=== PATIENT | male | born 1945 | race Caucasian/White ===

== ENCOUNTER 2021-09-18 06:48 | Day surgery (SDC) | payer MEDICARE ==
[2021-09-17 11:27] VITALS: BMI 21.9
[2021-09-18] MEDS ORDERED: Lidocaine 1% MPF 2 ML VIAL ONE (07:52)
[2021-09-18] MEDS ORDERED: Phenylephrine 10 MG/ML VIAL ONE (09:07)
[2021-09-18] MEDS ORDERED: Fentanyl 100 MCG/2 ML VIAL ONE (09:07)
[2021-09-18] MEDS ORDERED: PROPOFOL 200 MG/20 ML VIAL ONE (09:39)
[2021-09-18] MEDS ORDERED: Lidocaine 1% PF 5 ML VIAL ONE (09:39)
== END 2021-09-18 12:44 | disposition home or self-care (01) ==
LOC: SDC 06:48
PROVIDERS: ATTEND Internal Medicine
PROC: 0DB98ZX Excision of Duodenum, Via Natural or Artificial Opening Endoscopic, Diagnostic (ICD-10-PCS; principal; 2021-09-18)
PROC: 0DB78ZX Excision of Stomach, Pylorus, Via Natural or Artificial Opening Endoscopic, Diagnostic (ICD-10-PCS; 2021-09-18)
PROC: 0DB38ZX Excision of Lower Esophagus, Via Natural or Artificial Opening Endoscopic, Diagnostic (ICD-10-PCS; 2021-09-18)
PROC: 0D758ZZ Dilation of Esophagus, Via Natural or Artificial Opening Endoscopic (ICD-10-PCS; 2021-09-18)
PROC: 0DBK8ZX Excision of Ascending Colon, Via Natural or Artificial Opening Endoscopic, Diagnostic (ICD-10-PCS; 2021-09-18)
PROC: 0DBN8ZX Excision of Sigmoid Colon, Via Natural or Artificial Opening Endoscopic, Diagnostic (ICD-10-PCS; 2021-09-18)
DX: D50.9 Iron deficiency anemia, unspecified (principal); R13.10 Dysphagia, unspecified; K57.30 Diverticulosis of large intestine without perforation or abscess without bleeding; R10.30 Lower abdominal pain, unspecified; R63.4 Abnormal weight loss; Z68.22 Body mass index [BMI] 22.0-22.9, adult; Z79.01 Long term (current) use of anticoagulants; Z79.899 Other long term (current) drug therapy; Z88.5 Allergy status to narcotic agent; Z88.8 Allergy status to other drugs, medicaments and biological substances; Z95.1 Presence of aortocoronary bypass graft; Z95.5 Presence of coronary angioplasty implant and graft; Z95.810 Presence of automatic (implantable) cardiac defibrillator
CPT/HCPCS: 88305; 88312; 88313; 88342; J2370; J2704; J3010